=== PATIENT | male | born 1985 | race Caucasian/White ===

== ENCOUNTER 2019-09-11 11:14 | Emergency (ER) | payer OTHER ==
[~2019-09-11] VITALS: Ht 177.8 cm; Wt 81.6 kg
== END 2019-09-11 15:25 | disposition home or self-care (01) ==
LOC: ER 11:14
DX: K29.70 Gastritis, unspecified, without bleeding (principal); K52.9 Noninfective gastroenteritis and colitis, unspecified; R10.13 Epigastric pain